=== PATIENT | female | born 1945 | race Two or more races ===

== ENCOUNTER 2017-12-31 17:47 | Emergency (ER) | payer MEDICARE, MEDICAID ==
[~2017-12-31] VITALS: Ht 160 cm; Wt 80.0 kg
[~2017-12-31 17:47] MED LIST: AMLO10TA PO; ASPI-1 PO; CHOL10002 PO; CLON0.1T PO; CYCL-1 PO; HYDR-3965 PO; IBUP-1985 PO; LORA10TA7 PO; LOSA100T15 PO; LYR25C PO; OLOP5DRO14 EACHEYE; OXYC-657 PO; PER10325T PO; VARE1TAB21 PO
[2017-12-31] MEDS ORDERED: normal saline 1000ML IV soln IVB ONE ×2 (17:55→19:45)
[2017-12-31] MEDS ORDERED: ondansetron/PF 4mg/2ml inj IV ONE (17:55)
[2017-12-31 18:18] LABS: BASOPHILS # (AUTO) 0.1 X10'3 (0-0.2); BASOPHILS % (AUTO) 0.9 % (0-1); EOSINOPHILS # (AUTO) 0.3 X10'3 (0-0.9); EOSINOPHILS % (AUTO) 2.1 % (0-6); HEMOGLOBIN 11.9 g/dl (12.0-16.0); LYMPHOCYTES # (AUTO) 2.4 X10'3 (1.1-4.8); LYMPHOCYTES % (AUTO) 19.7 % (21-51); MEAN CORPUSCULAR HEMOGLOBIN 21.6 PG (27.0-31.0); MEAN CORPUSCULAR HGB CONC 31.3 % (33.0-36.5); MEAN PLATELET VOLUME 11.8 FL (7.4-10.4); MONOCYTES % (AUTO) 8.5 % (2-12); NEUTROPHILS # (AUTO) 8.4 X10'3 (1.8-7.7); NEUTROPHILS % (AUTO) 68.8 % (42-75); PLATELET COUNT 255 X10'3 (140-440); RED BLOOD COUNT 5.51 X10'6 (4.20-5.60); RED CELL DISTRIBUTION WIDTH 17.6 % (11.5-14.5); WHITE BLOOD COUNT 12.2 X10'3 (4.5-11.0)
[2017-12-31 18:28] LABS: ALANINE AMINOTRANSFERASE 34 U/L (12-78); ALBUMIN 3.8 G/DL (3.4-5.0); ALBUMIN/GLOBULIN RATIO 1.1 (1.1-1.5); ALKALINE PHOSPHATASE 100 IU/L (46-116); ANION GAP 12 (8-16); ASPARTATE AMINO TRANSFERASE 19 U/L (10-37); BILIRUBIN,TOTAL 0.3 MG/DL (0.1-1.0); BLOOD UREA NITROGEN 26 MG/DL (7-18); BUN/CREATININE RATIO 17.8 (6.6-38.0); CALCIUM 8.5 MG/DL (8.5-10.1); CHLORIDE 95 MMOL/L (99-107); CREATININE 1.46 MG/DL (0.40-0.90); GLUCOSE 97 MG/DL (70-104); POTASSIUM 4.6 MMOL/L (3.5-5.1); SODIUM 131 MMOL/L (135-145); TOTAL PROTEIN 7.4 G/DL (6.4-8.2); eGFR 35 ML/MIN
[2017-12-31 18:30] LABS: CLARITY,URINE SLIGHTLY CLOUDY (Clear); COLOR,URINE YELLOW (Yellow); GLUCOSE, URINE NEGATIVE (Neg); KETONES,URINE NEGATIVE (Neg); LEUKOCYTE ESTERASE ,URINE NEGATIVE (Neg); NITRITES, URINE NEGATIVE (Neg); OCCULT BLOOD,URINE NEGATIVE (Neg); PH,URINE 5.5 (4.8-8.0); PROTEIN,URINE NEGATIVE (Neg); UROBILINOGEN,URINE 0.2 E.U/dL (0.2-1.0)
[2017-12-31 18:32] LABS: LIPASE 92 U/L (73-393); TROPONIN I < 0.04 NG/ML (0.0-0.05)
[2017-12-31 18:33] LABS: UA COLLECTION TYPE STRAIGHT CATH
[2017-12-31 18:37] LABS: COARSE GRANULAR CAST 0-3 /LPF (NEGATIVE); HYALINE CASTS 0-3 /LPF (NEGATIVE); MUCUS STRANDS MODERATE /LPF (Neg); SQUAMOUS EPITHELIAL CELL,UR MANY /LPF (FEW)
[2017-12-31 18:38] LABS: AMORPHOUS URATES 1+; BACTERIA,URINE NONE SEEN /HPF (Neg); RBC,URINE 0-2 /HPF (0-2); WBC,URINE 0-4 /HPF (0-4)
[2017-12-31 18:59] VITALS: BP 116/62
[2017-12-31 19:32] LABS: ANISOCYTOSIS 2+; ELLIPTOCYTES FEW; HYPOCHROMASIA 1+; LARGE PLATELETS MODERATE; MICROCYTOSIS 2+; PLATELET ESTIMATE NORMAL; POLYCHROMASIA FEW
[2017-12-31] MEDS ORDERED: fentaNYL/PF 50MCG/1 ML 2ML syringe IV ONE (19:45)
== END 2017-12-31 21:24 | disposition home or self-care (01) ==
LOC: ER 17:47
DX: R25.2 Cramp and spasm (principal); G89.29 Other chronic pain; R10.9 Unspecified abdominal pain; I10 Essential (primary) hypertension; K21.9 Gastro-esophageal reflux disease without esophagitis; Z90.49 Acquired absence of other specified parts of digestive tract; Z98.890 Other specified postprocedural states; Z79.899 Other long term (current) drug therapy; Z88.5 Allergy status to narcotic agent; Z79.82 Long term (current) use of aspirin
CPT/HCPCS: 36415; 71045; 74176; 80053; 81001; 83690; 84484; 85025; 93005; 96374; 96375; 99285; J2405; J3010; P9612

== ENCOUNTER 2018-03-01 19:18 | Emergency (ER) | payer MEDICARE, MEDICAID ==
[~2018-03-01] VITALS: Ht 160 cm; Wt 67.5 kg
[2018-03-01] MEDS ORDERED: albuterol 2.5 MG/3 ML nebule NEB ONE (20:40)
[2018-03-01 21:16] LABS: ALANINE AMINOTRANSFERASE 26 U/L (12-78); ALBUMIN 2.8 G/DL (3.4-5.0); ALBUMIN/GLOBULIN RATIO 0.7 (1.1-1.5); ALKALINE PHOSPHATASE 102 IU/L (46-116); ANION GAP 12 (8-16); ASPARTATE AMINO TRANSFERASE 23 U/L (10-37); BILIRUBIN,TOTAL 0.5 MG/DL (0.1-1.0); BLOOD UREA NITROGEN 11 MG/DL (7-18); BUN/CREATININE RATIO 13.3 (6.6-38.0); CALCIUM 8.7 MG/DL (8.5-10.1); CHLORIDE 101 MMOL/L (99-107); CREATININE 0.83 MG/DL (0.40-0.90); GLUCOSE 143 MG/DL (70-104); POTASSIUM 3.6 MMOL/L (3.5-5.1); SODIUM 138 MMOL/L (135-145); TOTAL CARBON DIOXIDE 24.6 MMOL/L (24-32); eGFR 68 ML/MIN
[2018-03-01 21:44] LABS: BASOPHILS % (AUTO) 0.2 % (0-1); EOSINOPHILS # (AUTO) 0.4 X10'3 (0-0.9); HEMATOCRIT 31.1 % (35.0-45.0); HEMOGLOBIN 9.8 g/dl (12.0-16.0); LYMPHOCYTES # (AUTO) 1.4 X10'3 (1.1-4.8); LYMPHOCYTES % (AUTO) 14.9 % (21-51); MEAN CORPUSCULAR HEMOGLOBIN 21.3 PG (27.0-31.0); MEAN CORPUSCULAR HGB CONC 31.7 % (33.0-36.5); MEAN CORPUSCULAR VOLUME 67.4 FL (78-98); MONOCYTES # (AUTO) 1.1 X10'3 (0-0.9); MONOCYTES % (AUTO) 11.5 % (2-12); NEUTROPHILS # (AUTO) 6.6 X10'3 (1.8-7.7); NEUTROPHILS % (AUTO) 69.4 % (42-75); PLATELET COUNT 266 X10'3 (140-440); RED BLOOD COUNT 4.61 X10'6 (4.20-5.60); RED CELL DISTRIBUTION WIDTH 16.1 % (11.5-14.5); WHITE BLOOD COUNT 9.5 X10'3 (4.5-11.0)
[2018-03-01] MEDS ORDERED: methylPREDNISolone sod succ 125mg/2ml vial IV ONE (21:45)
[2018-03-01 22:09] VITALS: BP 137/58
[2018-03-01 22:44] LABS: PLATELET ESTIMATE NORMAL
[2018-03-01 22:45] LABS: ANISOCYTOSIS 1+; ELLIPTOCYTES 1+; LARGE PLATELETS MODERATE; MICROCYTOSIS 2+
[2018-03-01] MEDS ORDERED: LEVO750T21 PO (23:25)
[2018-03-01] MEDS ORDERED: ALBU8HFA PO (23:25)
[2018-03-01] MEDS ORDERED: PRED20TA PO (23:25)
== END 2018-03-01 23:48 | disposition home or self-care (01) ==
LOC: ER 19:18
DX: J44.1 Chronic obstructive pulmonary disease with (acute) exacerbation (principal); I10 Essential (primary) hypertension; K21.9 Gastro-esophageal reflux disease without esophagitis; Z90.49 Acquired absence of other specified parts of digestive tract; Z98.890 Other specified postprocedural states; Z88.5 Allergy status to narcotic agent; Z79.82 Long term (current) use of aspirin; Z79.899 Other long term (current) drug therapy
CPT/HCPCS: 36415; 71045; 80053; 83880; 85025; 85610; 87502; 87503; 93005; 94640; 94760; 96374; 99284; J2930

== ENCOUNTER 2019-10-17 07:02 | Day surgery (SDC) | payer MEDICARE, MEDICAID ==
[2019-10-07 14:51] LABS: BASOPHILS # (AUTO) 0.1 X10'3 (0-0.2); BASOPHILS % (AUTO) 1.3 % (0-1); EOSINOPHILS # (AUTO) 0.1 X10'3 (0-0.9); EOSINOPHILS % (AUTO) 1.4 % (0-6); LYMPHOCYTES # (AUTO) 2.3 X10'3 (1.1-4.8); LYMPHOCYTES % (AUTO) 23.3 % (21-51); MEAN CORPUSCULAR HEMOGLOBIN 21.9 PG (27.0-31.0); MEAN CORPUSCULAR HGB CONC 31.2 g/dL (33.0-36.5); MEAN CORPUSCULAR VOLUME 70.2 FL (78-98); MEAN PLATELET VOLUME 10.8 FL (7.4-10.4); MONOCYTES # (AUTO) 0.8 X10'3 (0-0.9); MONOCYTES % (AUTO) 8.5 % (2-12); NEUTROPHILS # (AUTO) 6.5 X10'3 (1.8-7.7); NEUTROPHILS % (AUTO) 65.5 % (42-75); PRE OP HEMATOCRIT 37.6 % (35.0-45.0); PRE OP HEMOGLOBIN 11.7 g/dL (12.0-16.0); PRE OP PLATELET COUNT 224 X10'3 (140-440); RED BLOOD COUNT 5.35 X10'6 (4.20-5.60); RED CELL DISTRIBUTION WIDTH 15.9 % (11.5-14.5)
[2019-10-07 15:14] LABS: ALBUMIN 3.7 G/DL (3.4-5.0); ALKALINE PHOSPHATASE 79 IU/L (46-116); BLOOD UREA NITROGEN 13 MG/DL (7-18); BUN/CREATININE RATIO 12.1 (6.6-38.0); CALCIUM 8.7 MG/DL (8.5-10.1); CHLORIDE 103 MMOL/L (99-107); CREATININE 1.07 MG/DL (0.40-0.90); PRE OP ALT 29 U/L (30-65); PRE OP ANION GAP 8 (8-16); PRE OP AST 17 U/L (10-37); PRE OP BILIRUB, TOTAL 0.3 MG/DL (0.0-1.0); PRE OP GLUCOSE 101 MG/DL (70-104); PRE OP POTASSIUM 3.9 MMOL/L (3.4-5.1); PRE OP SODIUM 138 MMOL/L (135-145); TOTAL CARBON DIOXIDE 26.9 MMOL/L (24-32); TOTAL PROTEIN 7.3 G/DL (6.4-8.2); eGFR 50 ML/MIN
[2019-10-07 15:16] LABS: TOTAL CELLS COUNTED 100
[2019-10-07 15:17] LABS: ELLIPTOCYTES FEW; MICROCYTOSIS 1+; PLATELET ESTIMATE NORMAL; SCHISTOCYTES FEW
[2019-10-07 15:21] LABS: LARGE PLATELETS FEW
[~2019-10-17] VITALS: Ht 160 cm; Wt 75.7 kg
[~2019-10-17 07:02] MED LIST changes: +ALBU18HF2 INH; -ASPI-1 PO; +BUDE10.2 INH; +BUPIVAcaine/PF 2.5mg/ml (0.25%) 10ml vial ONE; -CHOL10002 PO; -CLON0.1T PO; -CYCL-1 PO; +DOCUMENT DATE & TIME OF BETA-BLOCKER PO ONE; -IBUP-1985 PO; -LORA10TA7 PO; -LOSA100T15 PO; +LOSA100T57 PO; -LYR25C PO; +METO25TA6 PO; -OLOP5DRO14 EACHEYE; -OXYC-657 PO; -PER10325T PO; -VARE1TAB21 PO; +albuterol 2.5 MG/3 ML nebule NEB ONE; +ceFAZolin 2gm in dextrose, iso 50 ML IV ONE; +famotidine 20mg tablet PO ONE; +ringers solution, lacted 1,000 ML IV SCH
[2019-10-17] MEDS ORDERED: LIDOcaine 0.5% (5mg/ml) 50ml vial ONE (07:44)
[2019-10-17 08:06] VITALS: BP 117/58
[2019-10-17 08:12] VITALS: BP 117/58
[2019-10-17] MEDS ORDERED: ringers solution, lacted 1,000 ML IV SCH (08:28)
[2019-10-17] MEDS ORDERED: ondansetron/PF 4mg/2ml inj IV PRN (08:30)
[2019-10-17] MEDS ORDERED: meperidine/PF 25mg/ml syringe IV PRN ×3 (08:30)
[2019-10-17] MEDS ORDERED: proCHLORperazine 10 MG/2 ml inj IV PRN (08:30)
[2019-10-17] MEDS ORDERED: fentaNYL/PF 50MCG/1 ML 2ML syringe ONE (09:07)
[2019-10-17] MEDS ORDERED: midazolam 2 mg/2 ml injection ONE (09:08)
[2019-10-17 09:30] VITALS: BP 125/58
--- NOTE | 2019-10-17 09:30 | NUR ---
Received from OR via , accompanied by Anesthesiologist DR QUIÑONEZ and report given by Anesthesiolgist. AWAKE AND YUSUF PAIN. VITALS STABLE. DRESSING DI. FINGERS WARM AND PINK.
[2019-10-17 09:40] VITALS: BP 126/52
[2019-10-17 09:50] VITALS: BP 132/58
[2019-10-17 10:00] VITALS: BP 133/61
--- NOTE | 2019-10-17 10:10 | NUR ---
AWAKE AND ORIENTED. VITALS STABLE. DRESSING DI. STATES PAIN IMPROVING. HOME WITH FAMILY AT THIS TIME.
== END 2019-10-17 10:10 | disposition home or self-care (01) ==
LOC: PAS 07:02
PROVIDERS: ATTEND Orthopaedic Surgery Hand Surgery
DX: G56.01 Carpal tunnel syndrome, right upper limb (principal); M19.041 Primary osteoarthritis, right hand; M19.012 Primary osteoarthritis, left shoulder; M17.12 Unilateral primary osteoarthritis, left knee; I10 Essential (primary) hypertension; G62.9 Polyneuropathy, unspecified; G89.29 Other chronic pain; F17.210 Nicotine dependence, cigarettes, uncomplicated; Z88.5 Allergy status to narcotic agent; Z79.899 Other long term (current) drug therapy; Z11.59 Encounter for screening for other viral diseases; Z96.612 Presence of left artificial shoulder joint; Z96.611 Presence of right artificial shoulder joint; Z96.653 Presence of artificial knee joint, bilateral; Z90.49 Acquired absence of other specified parts of digestive tract; Z98.890 Other specified postprocedural states; Z80.42 Family history of malignant neoplasm of prostate
CPT/HCPCS: 36415; 64721; 71046; 80053; 82948; 85025; 93005; J2001; J2175; J2250; J3010; J3490; U0003; A4215; J7120

== ENCOUNTER 2021-01-25 11:00 | Inpatient (IN) | payer MEDICARE, MEDICAID ==
[~2021-01-25] VITALS: Ht 160 cm; Wt 76.9 kg
[~2021-01-25 11:00] MED LIST changes: -ALBU18HF2 INH; -BUPIVAcaine/PF 2.5mg/ml (0.25%) 10ml vial ONE; -DOCUMENT DATE & TIME OF BETA-BLOCKER PO ONE; +LOP25T PO; -METO25TA6 PO; -albuterol 2.5 MG/3 ML nebule NEB ONE; -ceFAZolin 2gm in dextrose, iso 50 ML IV ONE; -famotidine 20mg tablet PO ONE; -ringers solution, lacted 1,000 ML IV SCH
[2021-01-25] MEDS ORDERED: TRAM50TA2 (14:51)
[2021-01-25] MEDS ORDERED: ALBU8.5H17 INH (14:59)
[2021-01-25] MEDS ORDERED: QUER1POW (14:59)
[2021-01-25] MEDS ORDERED: GABA-530 PO (14:59)
[2021-01-25] MEDS ORDERED: ZINC50TA67 PO (14:59)
[2021-01-25] MEDS ORDERED: CHOL10006 PO (14:59)
[2021-01-25] MEDS ORDERED: ACET-1025 PO (14:59)
[2021-01-25 16:17] LABS: BASOPHILS # (AUTO) 0.1 X10'3 (0-0.2); EOSINOPHILS # (AUTO) 0.1 X10'3 (0-0.9); EOSINOPHILS % (AUTO) 1.4 % (0-6); LYMPHOCYTES # (AUTO) 2.3 X10'3 (1.1-4.8); LYMPHOCYTES % (AUTO) 25.6 % (21-51); MEAN CORPUSCULAR HEMOGLOBIN 22.5 PG (27.0-31.0); MEAN CORPUSCULAR HGB CONC 31.5 g/dL (33.0-36.5); MEAN CORPUSCULAR VOLUME 71.6 FL (78-98); MEAN PLATELET VOLUME 10.1 FL (7.4-10.4); MONOCYTES # (AUTO) 0.8 X10'3 (0-0.9); MONOCYTES % (AUTO) 8.9 % (2-12); NEUTROPHILS # (AUTO) 5.5 X10'3 (1.8-7.7); NEUTROPHILS % (AUTO) 63.1 % (42-75); PRE OP HEMATOCRIT 38.6 % (35.0-45.0); PRE OP HEMOGLOBIN 12.1 g/dL (12.0-16.0); PRE OP PLATELET COUNT 232 X10'3 (140-440); RED BLOOD COUNT 5.39 X10'6 (4.20-5.60); RED CELL DISTRIBUTION WIDTH 15.4 % (11.5-14.5)
[2021-01-25 16:24] LABS: ALBUMIN 3.7 G/DL (3.4-5.0); ALKALINE PHOSPHATASE 97 IU/L (46-116); BLOOD UREA NITROGEN 13 MG/DL (7-18); BUN/CREATININE RATIO 11.8 (6.6-38.0); CALCIUM 8.7 MG/DL (8.5-10.1); CHLORIDE 101 MMOL/L (99-107); PRE OP ALT 76 U/L (30-65); PRE OP ANION GAP 10 (8-16); PRE OP AST 73 U/L (10-37); PRE OP BILIRUB, TOTAL 0.4 MG/DL (0.0-1.0); PRE OP GLUCOSE 90 MG/DL (70-104); PRE OP POTASSIUM 4.4 MMOL/L (3.4-5.1); PRE OP SODIUM 138 MMOL/L (135-145); TOTAL CARBON DIOXIDE 26.8 MMOL/L (24-32); TOTAL PROTEIN 7.4 G/DL (6.4-8.2); eGFR 49 ML/MIN
[2021-02-01] VITALS (24 sets, daily range): BP systolic 110–151; BP diastolic 58–101
[2021-02-01] MEDS ORDERED: ringers solution, lacted 1,000 ML IV SCH ×2 (05:00→08:10)
[2021-02-01] MEDS ORDERED: tranexamic acid 650mg tablet PO ONE (05:30)
[2021-02-01] MEDS ORDERED: albuterol 2.5 MG/3 ML nebule NEB ONE (05:30)
[2021-02-01] MEDS ORDERED: DOCUMENT DATE & TIME OF BETA-BLOCKER PO ONE (05:30)
[2021-02-01] MEDS ORDERED: famotidine 20mg tablet PO ONE (05:30)
[2021-02-01] MEDS ORDERED: ceFAZolin 2gm in dextrose, iso 50 ML IV ONE (05:30)
[2021-02-01] MEDS ORDERED: vancomycin 1,500 MG in NS 300ml IV soln IV ONE (05:30)
[2021-02-01] MEDS ORDERED: ONDA8TAB13 PO (07:13)
[2021-02-01] MEDS ORDERED: HYDROcodone/acetaminophen 5mg/325mg tablet PO ONE (07:30)
[2021-02-01] MEDS ORDERED: ondansetron/PF 4mg/2ml inj IV PRN ×2 (08:10→11:50)
[2021-02-01] MEDS ORDERED: meperidine/PF 25mg/ml syringe IV PRN ×3 (08:10)
[2021-02-01] MEDS ORDERED: proCHLORperazine 10 MG/2 ml inj IV PRN (08:10)
[2021-02-01] MEDS ORDERED: MIDAZolam 1 MG/ML 5ML VIAL ONE (09:32)
[2021-02-01] MEDS ORDERED: fentaNYL/PF 50MCG/1 ML 2ML syringe ONE (09:32)
[2021-02-01] MEDS ORDERED: dexamethasone sod phosphate 10mg/ml inj ONE (09:32)
[2021-02-01] MEDS ORDERED: sevoflurane 250ml liquid IH ONE (09:32)
[2021-02-01] MEDS ORDERED: LIDOcaine 1%/PF 5ML 10 MG/ML VIAL ONE (09:32)
[2021-02-01] MEDS ORDERED: BUPIVAcaine/PF 2.5 mg/ml (0.25%) 30ml vial ONE (09:35)
[2021-02-01] MEDS ORDERED: propofol inj 20 ML IV ONE ×2 (09:40→11:53)
[2021-02-01] MEDS ORDERED: ROPIVAcaine 0.2% (10 MG/5 ML) BOLUS INJECTION INTERSCALE PRN (11:20)
[2021-02-01] MEDS ORDERED: ROPIVAcaine 0.2%/PF PUMP/bolus 545 ML INTERSCALE SCH (11:20)
[2021-02-01] MEDS ORDERED: bisacodyl 10mg suppository rectal RC PRN (11:50)
[2021-02-01] MEDS ORDERED: HYDROmorphone inj. 0.5 MG/0.5 ML DISP.SYRIN IV PRN (11:50)
[2021-02-01] MEDS ORDERED: acetaminophen 325mg tablet PO PRN (11:50)
[2021-02-01] MEDS ORDERED: HYDROcodone/acetaminophen 5mg/325mg tablet PO PRN (11:50)
[2021-02-01] MEDS ORDERED: traMADol 50MG tablet PO PRN (11:50)
[2021-02-01] MEDS ORDERED: diphenhydrAMINE 25mg capsule PO PRN ×2 (11:50)
[2021-02-01] MEDS ORDERED: magnesium hydroxide 30ml (MOM) UD suspension PO PRN (11:50)
[2021-02-01] MEDS ORDERED: albuterol 2.5 MG/3 ML nebule NEB PRN (11:50)
[2021-02-01] MEDS ORDERED: HYDROmorphone 1 mg/ml syringe IV PRN (11:50)
[2021-02-01] MEDS ORDERED: ondansetron/PF 4mg/2ml inj ONE (11:53)
--- NOTE | 2021-02-01 11:56 | NUR ---
Received from OR via BED IN STABLE CONDITION , accompanied by Anesthesiologist and DIRECTOR COLLEGE report given by DIRECTOR COLLEGE AND Anesthesiolgist. Addendum: 02/01/21 at 1305 by Lisa Laureano RN Amended: Links added.
[2021-02-01] MEDS ORDERED: non-formulary drug (Ondansetron (Ondansetron Odt) 1 TAB) PO SCH (13:00)
[2021-02-01] MEDS ORDERED: acetaminophen 1,000mg/100ml IV 100 ML IV ONE (13:00)
--- NOTE | 2021-02-01 14:06 | NUR ---
PATIENT DISCHARGED FROM PACU IN STABLE CONDITION AFTER REPORT GIVEN TO RN TAKING OVER PATIENTS CARE. PATIENT TRANSFERRED VIA BED TO ROOM WITH ANIMAL RESCUER AND FRAMEWORK DEVELOPER. Addendum: 02/01/21 at 1422 by Lisa Laureano RN Amended: Links added.
[2021-02-01] MEDS ORDERED: albuterol 2.5 MG/3 ML nebule NEB SCH (15:00)
--- NOTE | 2021-02-01 15:04 | NUR ---
Received patient to room 340A in bed accompanied by x1 staff. Patient alert and oriented and c/o pain to left shoulder. Educated patient use of ONQ ball which was set at 4ml/hr. Increased to 6ml/HR. Patient oriented to room and call light. Call light placed within reach. Left shoulder dressing CDI, cold powder pack placed, shoulder wrap on. Patient able to void.
[2021-02-01] MEDS: gabapentin 300mg capsule PO SCH ×2 (15:27→20:12)
[2021-02-01] MEDS: acetaminophen 325mg tablet PO SCH ×2 (15:28→20:13)
[2021-02-01] MEDS: ceFAZolin/D5W- 1GM premix 50 ML IV SCH ×2 (15:38→23:41)
[2021-02-01] MEDS: oxyCODONE IR 5mg (immed. release) tablet PO PRN ×2 (17:30→23:37)
--- NOTE | 2021-02-01 18:17 | NUR ---
Patient in room [facility] 340A. I have received report from HUMAIRA Navarro and had the opportunity to ask questions and assume patient care.
--- NOTE | 2021-02-01 18:17 | NUR ---
Problems reprioritized. Patient report given, questions answered & plan of care reviewed with HUMAIRA Murphy.
[2021-02-01] MEDS: potassium cl 20mEq in 1/2 NS 1,000 ML IV SCH ×2 (19:50→20:17)
[2021-02-01] MEDS ORDERED: vancomycin/NS 1 GM ADD-VANTAGE 250 ML IV SCH (20:00)
[2021-02-01] MEDS: metoprolol tartrate 25mg tablet PO SCH (20:30)
[2021-02-01] MEDS ORDERED: sennosides 8.6mg tablet PO SCH (21:00)
[2021-02-01] MEDS ORDERED: budesonide 0.5mg/2ml UD nebule IH SCH (21:00)
[2021-02-01] MEDS ORDERED: gabapentin 100mg capsule PO SCH (21:00)
--- NOTE | 2021-02-01 22:50 | NUR ---
Student documentation: I have reviewed interventions, assessments performed and documented by Radha CHANDLER [facility].
[2021-02-02] MEDS: acetaminophen 325mg tablet PO SCH ×3 (02:00→13:34)
[2021-02-02] MEDS: potassium cl 20mEq in 1/2 NS 1,000 ML IV SCH ×2 (04:48→11:50)
[2021-02-02] MEDS: oxyCODONE IR 5mg (immed. release) tablet PO PRN ×2 (05:33→10:57)
--- NOTE | 2021-02-02 06:36 | NUR ---
Problems reprioritized. Patient report given, questions answered & plan of care reviewed with HUMAIRA Low.
--- NOTE | 2021-02-02 06:39 | NUR ---
Patient in room [facility] 340. I have received report from DONAVAN GERARDO and had the opportunity to ask questions and assume patient care.
[2021-02-02 06:56] LABS: ANION GAP 13 (8-16); CHLORIDE 108 MMOL/L (99-107); POTASSIUM 4.1 MMOL/L (3.5-5.1); SODIUM 143 MMOL/L (135-145); TOTAL CARBON DIOXIDE 21.8 MMOL/L (24-32)
[2021-02-02 07:00] VITALS: BP 147/77
[2021-02-02 07:11] LABS: BASOPHILS % (AUTO) 0.4 % (0-1); EOSINOPHILS % (AUTO) 0 % (0-6); HEMATOCRIT 34.1 % (35.0-45.0); HEMOGLOBIN 10.8 g/dl (12.0-16.0); LYMPHOCYTES # (AUTO) 1.3 X10'3 (1.1-4.8); LYMPHOCYTES % (AUTO) 10.2 % (21-51); MEAN CORPUSCULAR HEMOGLOBIN 22.8 PG (27.0-31.0); MEAN CORPUSCULAR HGB CONC 31.6 g/dL (33.0-36.5); MEAN CORPUSCULAR VOLUME 72.2 FL (78-98); MEAN PLATELET VOLUME 10.3 FL (7.4-10.4); MONOCYTES # (AUTO) 1.4 X10'3 (0-0.9); MONOCYTES % (AUTO) 11.5 % (2-12); NEUTROPHILS # (AUTO) 9.7 X10'3 (1.8-7.7); NEUTROPHILS % (AUTO) 77.9 % (42-75); PLATELET COUNT 196 X10'3 (140-440); RED BLOOD COUNT 4.72 X10'6 (4.20-5.60); RED CELL DISTRIBUTION WIDTH 15.2 % (11.5-14.5); WHITE BLOOD COUNT 12.5 X10'3 (4.5-11.0)
[2021-02-02] MEDS: metoprolol tartrate 25mg tablet PO SCH (07:53)
[2021-02-02] MEDS: gabapentin 300mg capsule PO SCH ×2 (07:53→13:35)
[2021-02-02] MEDS ORDERED: zinc sulfate 220mg capsule PO SCH (08:00)
[2021-02-02] MEDS ORDERED: losartan 50mg tablet PO SCH (08:00)
[2021-02-02] MEDS ORDERED: cholecalciferol (vitamin D3) 1,000 unit (25mcg) tablet PO SCH (08:00)
[2021-02-02] MEDS ORDERED: non-formulary drug (Budesonide/Formoterol Fumarate (Symbicort 160-4.5 Mcg Inhaler) 2 PUFF) INH SCH (08:00)
[2021-02-02] MEDS ORDERED: amLODIPine 5mg tablet PO SCH (08:00)
[2021-02-02] MEDS ORDERED: aspirin 325mg tablet PO SCH (08:30)
[2021-02-02] MEDS ORDERED: pneumococcal 23-VAL P-sac vacc 25 mcg/0.5ml vial IMVAC ONE (10:00)
[2021-02-02 11:00] VITALS: BP 105/66
--- NOTE | 2021-02-02 13:29 | NUR ---
PT ON Q PUMP IS STILL FULL, NO NEED TO CHANGE.
--- NOTE | 2021-02-02 14:59 | NUR ---
PT IS STABLE FOR DISCHARGE, IV IS DC AND INTACT, PT WAS GIVEN DISCHARGE INFO, ALL BELONGINGS GATHERED, PT WAS WHEELED DOWN TO LOBBY IN WHEELCHAIR AND WAS PICKED UP BY FAMILY IN PRIVATE VEHICLE.
[2021-02-02] MEDS ORDERED: celeCOXIB 100mg capsule PO SCH (20:00)
--- NOTE | 2021-02-03 11:32 | NUR ---
Pt called re: OnQ ball "ran out of medicine". After consulting vicky Rouse Ortho console assembler, pt was instructed to take oral pain meds as ordered and to DC OnQ Ball. Pt stated she had a family member to help her and denied other questions at this time. Pt advised was coached on how to d/c QBall, and to call this unit if she had further questions, or visit ER if she had difficulty removing the QBall. Pt agreed and verbalized understanding.
[2021-02-03] MEDS ORDERED: acetaminophen 325mg tablet PO PRN (11:50)
== END 2021-02-02 15:00 | disposition home or self-care (01) | DRG 483 ==
LOC: UNDOADMIN 02-01 06:41 → PAS IN 02-01 06:41 → SUR 3N 02-01 14:39
PROVIDERS: ADMIT Orthopaedic Surgery; ATTEND Orthopaedic Surgery
PROC: 0LS40ZZ Reposition Left Upper Arm Tendon, Open Approach (ICD-10-PCS; 2021-02-01)
PROC: 3E0T3BZ Introduction of Anesthetic Agent into Peripheral Nerves and Plexi, Percutaneous Approach (ICD-10-PCS; 2021-02-01)
PROC: 3E0T33Z Introduction of Anti-inflammatory into Peripheral Nerves and Plexi, Percutaneous Approach (ICD-10-PCS; 2021-02-01)
PROC: 0RRK00Z Replacement of Left Shoulder Joint with Reverse Ball and Socket Synthetic Substitute, Open Approach (ICD-10-PCS; principal; 2021-02-01 09:32)
PROC: 3E0234Z Introduction of Serum, Toxoid and Vaccine into Muscle, Percutaneous Approach (ICD-10-PCS; 2021-02-02)
DX: M19.012 Primary osteoarthritis, left shoulder (principal); D62 Acute posthemorrhagic anemia; M75.22 Bicipital tendinitis, left shoulder; M65.812 Other synovitis and tenosynovitis, left shoulder; M75.122 Complete rotator cuff tear or rupture of left shoulder, not specified as traumatic; Z23 Encounter for immunization; Z79.899 Other long term (current) drug therapy
CPT/HCPCS: 36415; 80051; 80053; 82948; 85025; 87081; 90732; 97110; 97116; 97161; 97530; A4565; A4618; A7000; C1776; G0378; J0131; J0690; J1100; J2250; J2405; J2704; J2795; J3010; J3370; J3480; J3490; J7040; J7120; U0003; U0005

== ENCOUNTER 2023-01-24 08:00 | Outpatient (CLI) | payer MEDICARE, MEDICAID ==
[~2023-01-24] VITALS: Ht 161.3 cm; Wt 73.9 kg
[~2023-01-24 08:00] MED LIST changes: +ACET-1025 PO; +ALBU8.5H17 INH; +CHOL10006 PO; +GABA-530 PO; -HYDR-3965 PO; -LOSA100T57 PO; +LOSA100T58 PO; +ONDA8TAB13 PO; +QUER1POW; +ZINC50TA67 PO
[2023-01-24] MEDS ORDERED: HYDR-3972 (16:22)
[2023-01-24 16:54] LABS: BASOPHILS # (AUTO) 0.1 X10'3 (0-0.2); BASOPHILS % (AUTO) 0.7 % (0-1); EOSINOPHILS # (AUTO) 0.1 X10'3 (0-0.9); EOSINOPHILS % (AUTO) 0.7 % (0-6); LYMPHOCYTES # (AUTO) 2.9 X10'3 (1.1-4.8); LYMPHOCYTES % (AUTO) 27.2 % (21-51); MEAN CORPUSCULAR HEMOGLOBIN 22.3 PG (27.0-31.0); MEAN CORPUSCULAR HGB CONC 31.2 g/dL (33.0-36.5); MEAN CORPUSCULAR VOLUME 71.6 FL (78-98); MEAN PLATELET VOLUME 10.3 FL (7.4-10.4); MONOCYTES # (AUTO) 0.9 X10'3 (0-0.9); NEUTROPHILS # (AUTO) 6.8 X10'3 (1.8-7.7); NEUTROPHILS % (AUTO) 63.4 % (42-75); PRE OP HEMATOCRIT 41.5 % (35.0-45.0); PRE OP HEMOGLOBIN 12.9 g/dL (12.0-16.0); PRE OP PLATELET COUNT 216 X10'3 (140-440); PRE OP WHITE BLOOD COUNT 10.8 10'3 (4.8-10.8); RED CELL DISTRIBUTION WIDTH 15.7 % (11.5-14.5)
[2023-01-24 17:30] LABS: ALBUMIN 4.1 G/DL (3.4-5.0); ALBUMIN/GLOBULIN RATIO 1.3 (1.1-1.5); ALKALINE PHOSPHATASE 92 IU/L (46-116); BLOOD UREA NITROGEN 20 MG/DL (7-18); BUN/CREATININE RATIO 21.1 (10.0-20.0); CALCIUM 9.4 MG/DL (8.5-10.1); CHLORIDE 99 MMOL/L (99-107); CREATININE 0.95 MG/DL (0.40-0.90); PRE OP ALT 42 U/L (30-65); PRE OP ANION GAP 9 (8-16); PRE OP AST 21 U/L (10-37); PRE OP BILIRUB, TOTAL 0.3 MG/DL (0.0-1.0); PRE OP GLUCOSE 95 MG/DL (70-104); PRE OP POTASSIUM 4.4 MMOL/L (3.4-5.1); PRE OP SODIUM 136 MMOL/L (135-145); TOTAL CARBON DIOXIDE 28.4 MMOL/L (24-32); TOTAL PROTEIN 7.3 G/DL (6.4-8.2); eGFR 57 ML/MIN
[2023-02-06] MEDS ORDERED: ringers solution, lacted 1,000 ML IV SCH (05:00)
[2023-02-06] MEDS ORDERED: tranexamic acid 650mg tablet PO ONE (05:30)
[2023-02-06] MEDS ORDERED: famotidine 20mg tablet PO ONE (05:30)
[2023-02-06] MEDS ORDERED: DOCUMENT DATE & TIME OF BETA-BLOCKER PO ONE (05:30)
[2023-02-06] MEDS ORDERED: cefazolin 2gm/D5W 100mL 100 ML IV ONE (05:30)
[2023-02-06] MEDS ORDERED: vancomycin 1,500 MG in NS 300ml IV soln IV ONE (05:30)
== END 2023-01-24 23:00 | disposition home or self-care (01) ==
LOC: LAB 08:00 → EDSTATUS 05-07 09:15
PROVIDERS: ATTEND Orthopaedic Surgery
DX: Z01.812 Encounter for preprocedural laboratory examination (principal); M25.562 Pain in left knee; Z96.652 Presence of left artificial knee joint
CPT/HCPCS: 36415; 80053; 85025; 87081; J0690; J3370; J7120

== ENCOUNTER 2024-10-10 07:06 | Day surgery (SDC) | payer OTHER ==
[2024-10-06 14:01] LABS: LEUKOCYTE ESTERASE ,URINE NEGATIVE (Neg); MEAN PLATELET VOLUME 9.3 FL (7.4-10.4); NITRITES, URINE NEGATIVE (Neg); OCCULT BLOOD,URINE NEGATIVE (Neg); PRE OP HEMATOCRIT 40.5 % (35.0-45.0); PRE OP HEMOGLOBIN 12.7 g/dL (12.0-16.0); PRE OP PLATELET COUNT 203 X10'3 (140-440); PRE OP WHITE BLOOD COUNT 10.3 10'3 (4.8-10.8); RED CELL DISTRIBUTION WIDTH 16.6 % (11.5-14.5)
[2024-10-06 14:07] LABS: UA COLLECTION TYPE NON-SPECIFIED
[2024-10-06 14:14] LABS: FINE GRANULAR CAST 0-3 /LPF (NEGATIVE)
[2024-10-06 14:15] LABS: SQUAMOUS EPITHELIAL CELL,UR FEW /LPF (FEW)
[2024-10-06 14:20] LABS: HYALINE CASTS >30 /LPF (NEGATIVE)
[2024-10-06 14:21] LABS: AMORPHOUS URATES 1+; MUCUS STRANDS FEW /LPF (Neg)
[2024-10-06 14:23] LABS: CREATININE 1.17 MG/DL (0.40-0.90); PRE OP ALT 38 U/L (30-65); PRE OP ANION GAP 13 (8-16); PRE OP AST 20 U/L (10-37); PRE OP BILIRUB, TOTAL 0.3 MG/DL (0.0-1.0); PRE OP GLUCOSE 106 MG/DL (70-104); PRE OP SODIUM 137 MMOL/L (135-145); TOTAL CARBON DIOXIDE 28.3 MMOL/L (24-32); eGFR 45 ML/MIN
[2024-10-06 14:27] LABS: PRE OP POTASSIUM 3.3 MMOL/L (3.4-5.1)
[2024-10-10] VITALS (11 sets, daily range): BP systolic 134–151; BP diastolic 62–74; PULSE 58–74; RESP 12–17; TEMP 97.5; O2SAT 92–99
[~2024-10-10] VITALS: Ht 160 cm; Wt 76.6 kg
[2024-10-10] MEDS: ceFAZolin 2gm/dext,iso 50mL 50 ML IV ONE (05:30)
[~2024-10-10 07:06] MED LIST changes: -ACET-1025 PO; -ALBU8.5H17 INH; -AMLO10TA PO; +AMLO10TA13 PO; -BUDE10.2 INH; -CHOL10006 PO; +CLON0.1T2 PO; +ESOM40CA66 PO; +FAMO20TA8 PO; -GABA-530 PO; +HYDR-3972; +HYDR25TA4 PO; -LOP25T PO; -LOSA100T58 PO; -ONDA8TAB13 PO; -QUER1POW; -ZINC50TA67 PO
[2024-10-10] MEDS ORDERED: desflurane 240ml liquid inh. IH ONE (07:07)
[2024-10-10] MEDS ORDERED: bacitracin 15gm ointment TP ONE (07:58)
[2024-10-10] MEDS ORDERED: BUPIVAcaine/PF 2.5mg/ml (0.25%) 10ml vial ONE (07:58)
[2024-10-10] MEDS: ringers solution, lacted 1,000 ML IV SCH (08:11)
[2024-10-10] MEDS: midazolam 1 mg/ML 2ml injection IV PRN (08:43)
[2024-10-10] MEDS ORDERED: fentaNYL/PF 50MCG/1 ML 2ML syringe ONE (08:59)
[2024-10-10] MEDS ORDERED: propofol inj 20 ML IV ONE (09:00)
[2024-10-10] MEDS ORDERED: ROPIVAcaine 0.5% (5mg/ml) 30ml vial ONE (09:09)
[2024-10-10] MEDS ORDERED: LIDOcaine 1%/PF 5ML 10 MG/ML VIAL ONE (09:09)
[2024-10-10] MEDS ORDERED: dexamethasone sod phosphate 4mg/ml inj. ONE (09:10)
[2024-10-10] MEDS ORDERED: acetaminophen 1,000mg/100ml IV 100 ML IV ONE (09:10)
[2024-10-10] MEDS ORDERED: ondansetron/PF 4mg/2ml inj ONE (09:10)
[2024-10-10] MEDS: bacitracin 15gm ointment TP ONE ×3 (09:38→10:42)
[2024-10-10] MEDS ORDERED: hydrALAZINE 20mg/ml inj. IV PRN (09:45)
[2024-10-10] MEDS ORDERED: enalaprilat 1.25mg/ml 2ml vial IV PRN (09:45)
[2024-10-10] MEDS ORDERED: meperidine/PF 25mg/ml syringe IV PRN ×2 (09:45)
[2024-10-10] MEDS ORDERED: ondansetron/PF 4mg/2ml inj IV PRN (09:45)
[2024-10-10] MEDS ORDERED: ringers solution, lacted 1,000 ML IV SCH (09:45)
--- NOTE | 2024-10-10 09:51 | ANESTHESIA RECORDS ---
Nerve Block Providers to CC CC: NAN MALONEY DPM ~ Diagnosis: Nerve Block requested by: NAN MALONEY DPM Neuraxial/Peripheral Nerve Block requested for Post-operative analgesia by Physician above DIAGNOSIS: Post-operative pain. (Body Area) Shoulder: [ ] Arm: [ ] Hand: [ ] Hip: [ ] Knee: [ ] Ankle: [ ] Foot: [ Right ] Leg: [ ] Abdomen: [ ] Other: [ ] Post-operative pain expected to be/is inadequately managed by oral or IV medicines. Regional anesthetic expected to facilitate rehabilitation and/or discharge from facility. Other:[ _] Procedure Performed: Ankle Superficial Peroneal: Right Ankle Deep Peroneal: Right Ankle Sural & Sapenous Nerve: Right Time out Done?: Yes Time of Time out: 08:59 Procedure Details: PROCEDURE DETAILS: Risks, benefits and alternatives explained Informed consent obtained, and patient wishes to proceed Conscious sedation with indicated monitors Patient positioned, pertinent anatomy defined, sterile technique used Needle used: [ ] 3 1/8 inch Stimuplex Ultra 22ga [ ] 4 inch Stimuplex Ultra 20ga [ ] 6 inch Stimuplex Ultra 20ga [ ] 6 inch, Quikbloc over the needle catheter set 20ga [ ] 4 inch Quikbloc over the needle catheter set 20ga [X ]Other: [_22g ] Loss of twitch @ [ ]mA [X ] Single Injections [ ] Catheter Ultrasound Guidance Used: [ ] Yes [X ] No Attempts:[ 1 ] Medicines injected: [ ]Clonidine Amt:[ ] [ ]Dexamethasone Amt:[ ] [ X ]Ropivacaine Amt:[___0.5% 30c.c ] [ ]Bupivacaine Amt:[ ] [ ]Lidocaine Amt:[ ] [ ]Exparel 1.33%:[ ] [ ]Epinephrine Amt[ ] [ ]Other: [ ] Intermittent aspiration during local anesthetic administration No symptoms of intraneural or intravenous injection Patient tolerated procedure well Comments Right ankle bone ,ligament landmarks,and anatomical positions of nerve bundle are identified. Needle is placed casa all 5 nerve bundle positions and infilatrated with local anesthetic. MARIELOS SHELBY MD Oct 10, 2024 09:51
[2024-10-10] MEDS: fentaNYL/PF 50MCG/1 ML 2ML syringe IV PRN ×2 (11:04→11:24)
== END 2024-10-10 12:26 | disposition home or self-care (01) ==
LOC: PAS 07:06
PROVIDERS: ATTEND Podiatrist Foot & Ankle Surgery
DX: M20.21 Hallux rigidus, right foot (principal); M20.41 Other hammer toe(s) (acquired), right foot; M77.41 Metatarsalgia, right foot; M25.374 Other instability, right foot; M21.6X1 Other acquired deformities of right foot; J44.9 Chronic obstructive pulmonary disease, unspecified; G47.30 Sleep apnea, unspecified; I10 Essential (primary) hypertension; G89.29 Other chronic pain; Z79.899 Other long term (current) drug therapy; M19.012 Primary osteoarthritis, left shoulder; M19.041 Primary osteoarthritis, right hand; M17.12 Unilateral primary osteoarthritis, left knee; Z98.890 Other specified postprocedural states
CPT/HCPCS: 20902; 28043; 28285; 28289; 28308; 36415; 73620; 76942; 80053; 81001; 82948; 85025; A6223; C1713; J0131; J1100; J2250; J2405; J2704; J2795; J3010; J3490; J7030; J7120; L4360; Z7506; Z7508; Z7512; 76000; A4215; A4615; A4618; A6449; A7000

== ENCOUNTER 2025-02-19 11:15 | Outpatient (CLI) | payer OTHER ==
--- NOTE | 2025-02-19 13:31 | RADIOLOGY REPORT ---
CLINICAL INFORMATION: Right foot pain. TECHNIQUE: Axial CT images of the right foot were obtained without IV contrast. Coronal and sagittal reformatted images were obtained, reviewed, and stored. All CT scans at this medical facility are performed using dose modulation techniques as appropriate to a performed exam including the following: Automated exposure control was utilized; adjustment of the MA and/or KV according to patient size; and use of iterative reconstruction technique. CTDIvol = 14.5 mGy DLP = 423.05 mGy-cm COMPARISON: Correlation made to fluoroscopic intraoperative images of the right foot dated 10/10/2024. FINDINGS: Postsurgical changes of arthrodesis across the 1st MTP joint with dorsal compression plate and associated screws. There is solid osseous fusion across the arthrodesis site, appears to be complete or near complete osseous fusion. Surgical hardware is intact. Postsurgical changes of prior osteotomies involving the distal 2nd through 5th metatarsals with solid osseous fusion and callus formation across the osteotomy sites. There is osseous fusion across the 2nd and 3rd digit PIP and DIP joints. There is no evidence of acute fracture. There is varus alignment at the 5th digit MTP joint. Small osseous spur at the lateral aspect of the 5th metatarsal base. Small plantar calcaneal spur and mild spurring at the calcaneal tuberosity at the Achilles tendon insertion. There is lucency at the posterior calcaneus, likely from prior bone graft harvest. Mild arthritic changes at the talonavicular joint and cuneonavicular joint with joint space narrowing and mild subchondral sclerosis. Moderate fatty atrophy of the intrinsic musculature of the foot. Mild diffuse soft tissue swelling. No organized fluid collection identified on CT. IMPRESSION: 1. Postsurgical changes as detailed above. Surgical hardware at the 1st MTP joint is intact. There is solid osseous fusion across the 1st MTP joint arthrodesis site. There is osseous fusion and callus formation at the 2nd through 5th digit osteotomy sites. 2. No acute fracture. 3. Additional nonacute findings as described above.
== END 2025-02-19 23:59 | disposition home or self-care (01) ==
LOC: RAD 11:15
PROVIDERS: ATTEND Orthopaedic Surgery Foot and Ankle Surgery
DX: T81.49XA Infection following a procedure, other surgical site, initial encounter (principal); M77.41 Metatarsalgia, right foot; M20.21 Hallux rigidus, right foot; M25.374 Other instability, right foot; M79.671 Pain in right foot; M21.6X1 Other acquired deformities of right foot; Z98.1 Arthrodesis status; M20.41 Other hammer toe(s) (acquired), right foot; Z72.0 Tobacco use; X58.XXXA Exposure to other specified factors, initial encounter; Y93.89 Activity, other specified; Y92.89 Other specified places as the place of occurrence of the external cause; Y99.8 Other external cause status
CPT/HCPCS: 73700